=== PATIENT | male | born 1975 | race African-American/Black ===

== ENCOUNTER 2024-12-25 12:25 | Emergency (ER) | payer OTHER ==
[2024-12-25 13:39] VITALS: RESP 18; BMI 21.7
[2024-12-25] MEDS ORDERED: CLINDAMYCIN 600MG PREMIX IVPB 600 MG/50 ML BAG IVPB ONE (20:55)
[2024-12-25] MEDS ORDERED: CEFAZOLIN 1 GM/D5W 1 GM/50 ML BAG ONE (20:59)
[2024-12-25] MEDS: CEFAZOLIN 1 GM in DEXTROSE 5%-WATER - 50 ML IVPB ONE (21:02)
[2024-12-25 21:06] LABS: BASO % 0.5 % (0-2.0); EOS % 1.3 % (0-4.5); HEMATOCRIT 41.8 % (35.4-49); HEMOGLOBIN 14.1 GM/dL (11.7-16.9); LYMPH % 34.2 % (8-40); MCH 32.4 pg (25.7-33.7); MCHC 33.7 g/dl (32.0-35.9); MEAN CELL VOLUME 96.3 fl (80-96); MEAN PLT VOLUME 9.4 fl (7.5-11.1); MONO % 5.7 % (3.8-10.2); NEUT % 58.3 % (42.8-82.8); PLATELET COUNT 141 10^3/uL (134-434); RBC 4.34 M/mm3 (4.00-5.60); RDW 13.5 % (11.9-15.9); WHITE BLOOD COUNT 6.2 K/mm3 (4.0-10.0)
[2024-12-25 21:30] LABS: POTASSIUM 3.9 mmol/L (3.5-5.1)
[2024-12-25 21:32] LABS: CALCIUM 9.2 mg/dL (8.5-10.1)
[2024-12-25 21:33] LABS: ALBUMIN 3.8 g/dl (3.4-5.0); BLOOD UREA NITROGEN 11.7 mg/dL (7-18)
[2024-12-25 21:36] LABS: BILIRUBIN,TOTAL 0.7 mg/dL (0.2-1)
[2024-12-25 21:37] LABS: TOT PROT 7.1 g/dl (6.4-8.2)
[2024-12-25 23:51] VITALS: BP 145/89; PULSE 80; TEMP 97
== END 2024-12-25 23:51 | disposition short-term general hospital (02) ==
LOC: JER 12:25
DX: S02.641A Fracture of ramus of right mandible, initial encounter for closed fracture (principal); H11.31 Conjunctival hemorrhage, right eye; Y04.0XXA Assault by unarmed brawl or fight, initial encounter
CPT/HCPCS: 36415; 70486-TC; 80053; 85025; 99285-25